=== PATIENT | female | born 1960 | race Caucasian/White ===

== ENCOUNTER 2023-02-06 09:18 | Outpatient (AMB) | payer MEDICARE, SELFPAY ==
--- NOTE | 2023-02-06 12:26 | AM.OFFWIN_ITS ---
Intake Vital Signs 02/06/23 12:31 Height 5 ft 6 in Weight 159 lb BMI 25.7 BP 150/80 H Blood Pressure Location Lt brachial Position Sitting Pulse 99 Pulse Source Pulse Oximeter Temp 98.4 F Temp Source Temporal Artery Scan Pulse Oximetry (%) 98 Oxygen Delivery Method Room Air Intake Visit Reasons: EP cough +COVID 2wks ago [id number] Intake Note: pt is here today for cough+ covid 4 weeks ago Patient Tobacco Use Status: Never used Tobacco Allergies No Known Allergies Allergy (Verified 02/06/23 12:57) Medication List - Last Reconciled 02/06/23 by Amador Haro MD No Known Home Meds Do you need a note to return to daycare/school/sports/work: No HPI EP cough +COVID 2wks ago [id number] HPI Details 63-year-old female presents to the [facility] for a sick visit. Patient is reporting symptoms of nonproductive cough, postnasal drip and shortness of breath for 5 weeks. One week after symptoms started, patient was diagnosed with COVID and she has recovered from it. However the cough symptoms persist. 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 [facility] Social History Patient Tobacco Use Status: Never used Tobacco Physical Exam Vital Signs: Last Vital Signs Temp 98.4 F 02/06/23 12:31 Pulse 99 02/06/23 12:31 BP 150/80 H 02/06/23 12:31 Pulse Ox 98 02/06/23 12:31 Oxygen Delivery Method Room Air 02/06/23 12:31 BMI result Body Mass Index 25.7 Const General: cooperative and healthy appearing Nutritional Appearance: well nourished Orientation/consciousness: patient oriented x3 Limitations: no limitations HEENT Head: Yes normal to inspection Eyes General: appearance normal, both eyes and all related structures Neck Neck: Yes normal visual inspection Chest Chest palpation & inspection: normal palpation of entire chest wall Resp Other: Scattered crackles. Effort & Inspection: normal respiratory effort Neuro General: patient oriented x3 Assessment & Plan Assessment & Plan (1) Cough: Code(s): R05.9 - Cough, unspecified Plan: Chest x-ray images were reviewed by me. No infiltrate seen. Cough symptoms represent inflammation in the lungs. Prednisone, antibiotic and cough suppressant prescribed. If symptoms do not improve to follow-up here. Orders: Orders XR chest 2V Today R05.9 - Cough, unspecified Coding Level of Care Code Est Pt Level 4 (52367) Diagnoses Cough R05.9
[2023-02-06 12:31] VITALS: BP 150/80; PULSE 99; TEMP 36.9; O2SAT 98; BMI 25.7
== END 2023-02-06 13:26 | disposition home or self-care (01) ==
PROVIDERS: PCP Internal Medicine; Visit Provider Internal Medicine
DX: R05.9 Cough, unspecified (principal)
CPT/HCPCS: 99214

== ENCOUNTER 2023-02-06 12:57 | Outpatient (REF) | payer MEDICARE, SELFPAY ==
--- NOTE | ~2023-02-06 | XR_ITS ---
EXAMINATION: XR CHEST CLINICAL INFORMATION: Cough COMPARISON: None available. TECHNIQUE: 2 views of the chest were obtained. FINDINGS: No significant abnormality is noted involving the heart, lungs, mediastinum, bony thorax or soft tissues. XR/XR chest 2V IMPRESSION: Unremarkable examination.
== END 2023-02-06 12:58 | disposition home or self-care (01) ==
LOC: HO.HMGCX 12:57
PROVIDERS: PCP Internal Medicine Endocrinology, Diabetes & Metabolism; Visit Provider Internal Medicine
DX: R05.9 Cough, unspecified (principal)
CPT/HCPCS: 71046

== ENCOUNTER 2024-05-31 09:16 | Outpatient (AMB) | payer MEDICARE, SELFPAY ==
[2024-05-31 09:49] VITALS: BP 124/80; PULSE 89; RESP 16; TEMP 36.8; O2SAT 97; BMI 25.5
--- NOTE | 2024-05-31 09:49 | MHC.OFFWIV ---
Intake Vital Signs 05/31/24 09:49 Height 5 ft 6 in Weight 158 lb BMI 25.5 BP 124/80 Blood Pressure Location Lt brachial Position Sitting Respiration 16 Pulse 89 Pulse Source Pulse Oximeter Temp 98.2 F Temp Source Oral Pulse Oximetry (%) 97 Oxygen Delivery Method Room Air Intake Visit Reasons: EP-Neck Pain Intake Note: Pt is here today c/o neck pain due to being on the computer last sunday for 8 straight hrs at home: No injury noted Patient Tobacco Use Status: Never used Tobacco Allergies No Known Allergies Allergy (Verified 05/31/24 09:50) HPI EP-Neck Pain HPI Details Severe neck pain and spasm with decreased range of motion. No a traumatic injury but was using a computer for 8-10 hours with workstation well below eye level. Worsening tightness and tension in her neck and yesterday severe pain. PFSH Social History Patient Tobacco Use Status: Never used Tobacco Review of Systems Const Denies chills, Denies fatigue, Denies fever(s), Denies headache(s) and Denies weakness ENT Denies dizziness and Denies headache(s) Card Denies dyspnea Resp Denies cough, Denies dyspnea, Denies wheezing and Denies other ( shortness of breath) Musc Details: Neck pain and decreased range of motion See HPI Denies numbness and Denies tingling Neuro Denies dizziness, Denies headache(s), Denies numbness, Denies tingling, Denies paresthesias and Denies weakness Psych Denies anxiety and Denies depression Endo Denies fatigue Aller/Immun Denies wheezing Physical Exam Vital Signs: Last Vital Signs Temp 98.2 F 05/31/24 09:49 Pulse 89 05/31/24 09:49 Resp 16 05/31/24 09:49 BP 124/80 05/31/24 09:49 Pulse Ox 97 05/31/24 09:49 Oxygen Delivery Method Room Air 05/31/24 09:49 BMI result Body Mass Index 25.5 Const General: no acute distress and well developed Nutritional Appearance: well nourished Orientation/consciousness: patient oriented x3 HEENT Head: Yes normocephalic and Yes atraumatic Eyes General: appearance normal, both eyes and all related structures Pupils: Equal, round and reactive pupils present EOM: EOMs intact bilaterally Neck Other: Tension tenderness and decreased range of motion at cervical paraspinous muscles Also tension in trapezius muscles bilaterally Can not turn head to the left or right more than a few degrees. Turns body to address and speak to examiner. Resp Effort & Inspection: normal respiratory effort Neuro General: patient oriented x3 and gait normal Cranial nerves: Yes Equal, round and reactive pupils present Psych Affect: normal affect Assessment & Plan Assessment & Plan (1) Acute torticollis: Code(s): M43.6 - Torticollis Plan: Severe spasm of neck and trapezius muscles With inability to turn head. Will give her a script for cyclobenzaprine Meloxicam Ice/heat Maintain current range of motion but hold off on stretching for a couple of days Gentle stretching exercises demonstrated which she can begin when her muscle begin to relax Medications: New cyclobenzaprine 10 mg PO TID 10 days PRN 30 tabs 0RF muscle spasm meloxicam 15 mg PO DAILY 30 days 30 tabs 2RF Coding Level of Care Code Est Pt Level 3 (20407) Diagnoses Acute torticollis M43.6
== END 2024-05-31 11:10 | disposition home or self-care (01) ==
LOC: HO.HMCWIC 09:16
PROVIDERS: PCP Internal Medicine Endocrinology, Diabetes & Metabolism; Visit Provider Family Medicine
DX: M43.6 Torticollis (principal)

== ENCOUNTER → 2024-05-31 09:16 | Outpatient (BNVA) | payer MEDICARE, SELFPAY | PROVIDERS: PCP Internal Medicine Endocrinology, Diabetes & Metabolism; Visit Provider Family Medicine | DX: M43.6 Torticollis (principal) | CPT/HCPCS: 99212 ==

== ENCOUNTER 2024-08-26 07:58 | Outpatient (REF) | payer MEDICARE, SELFPAY ==
--- NOTE | ~2024-08-26 | XR_ITS ---
EXAMINATION: XR ELBOW, RIGHT CLINICAL INFORMATION: M79.601 - Pain in right arm COMPARISON: None available. TECHNIQUE: AP, lateral, and oblique views of the right elbow. FINDINGS: Assessment for joint effusion is somewhat limited due to obliquity on the lateral projection. There appears to be a joint effusion present. No definite fracture, dislocation, or suspicious bone lesion. 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 The radial head appears grossly intact. The radiocapitellar joint appears normal. There is no abnormality of the epicondyles. There is no soft tissue abnormality. XR/XR elbow RT min 3V IMPRESSION: 1. Limited assessment for joint effusion. Possible joint effusion present. 2. No definite fracture or dislocation identified. 3. 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 Electronically signed by: Rayn Fitzgerald MD 08/26/2024 09:21 AM EDT
== END 2024-08-26 07:59 | disposition home or self-care (01) ==
LOC: HO.HMGCX 07:58
PROVIDERS: PCP Internal Medicine Endocrinology, Diabetes & Metabolism; Visit Provider Physician Assistant Medical
DX: M79.601 Pain in right arm (principal)
CPT/HCPCS: 73080; 99212

== ENCOUNTER 2024-08-26 07:58 | Outpatient (AMB) | payer MEDICARE, SELFPAY ==
--- OUTSIDE RECORDS SUMMARY | 2024-08-26 08:01 | XMS_ITS | Clinical Summary ---
Author Organization [facility] Address [address] [place] [address] Care Team Providers Care Kaiwhakahaere Name Role Phone Clarita Kinsey MD Primary Care Provid er Surgical History Surgery Date Site/Laterality Comments OTHER SURGICAL HISTORY PROCEDURE: HISTORY OTHER; COMMENT: HYSTERECTOMY OTHER SURGICAL HISTORY PROCEDURE: HISTORY OTHER; COMMENT: RECTOCOELE AND CYSTOCOELE REPAIR Medical History Medical History Date Comments Osteoporosis DX:Osteoporosis Anxiety DX:Anxiety IBS (irritable bowel syndrome) D X:IBS (irritable bowel syndrome) GERD (gastroesophageal reflux disease) DX:GERD (gastroesophageal reflux disease) Polyp of colon DX:Polyp of colo n Hearing loss DX:Hearing loss 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 DX:Degeneration of lumbar in tervertebral disc Social History Tobacco Use Types Packs/Day Years Used Date Smoking Tobacco: Never Smokeless Tobacco: Never Alcohol Use Standard Drinks/Week Comments Not Currently 0 (1 standard drink = 0.6 oz pur e alcohol) Comments Unknown Sex and Gender Information Value Date Recorded Sex Assigned at Not on file Legal Sex Female 1:35 PM EDT Gender Identity Not on file Sexual Orientation Not on file Obstetrics History Last Filed Vital Signs Vital Sign Reading Time Taken Comments Blood Pressure 148/88 08/01/2023 12:12 PM EDT Sitting R Arm Pulse 106 09/17/2023 11:34 AM EDT Temperature - - Respiratory Rate - - Oxygen Saturation - - Inhaled Oxygen Concentration - - Weight 73.3 kg (161 lb 11.2 oz) 09/17/2023 11:32 AM EDT Height 167.6 cm (5' 6 ) 09/17/2023 11:3 2 AM EDT Body Mass Index 26.1 09/17/2023 11:32 AM EDT Plan of Treatment Upcoming Encounters Date Type Department Care Team (Late st Contact Info) Description 10/10/2024 10:40 AM EDT Office Visit [facility] [address] [place] [id number] Jakob Camejo NP [address] [place] [address] [address] [place] [address] Health Maintenance Due Date Last Done Comments Breast Cancer Screening 1960 DTaP,Tdap,and Td Vaccines (1 - Tdap) 1977 Pneumococcal Vaccine: 50+ Ye ars (1 of 1 - PCV) 01/09/2008 Zoster Vaccines (1 of 2) 01/09/2008 Cholesterol Screening (Lipid Panel) 09/04/2023 Colorectal Cancer Screening: Colonoscopy 09/04/2023 Falls Risk Assessment 09/04/2023 Hepatitis C Screening 09/04/2023 Medicare Annual Wellness Visit 09/04/2023 Osteoporosis Screening (Bone Density Screening) 09/04/2023 Social Influencers of Health Screening 09/04/2023 COVID-19 Vaccine (1 - 2023-2 5 season) 2023 Depression Screening 02/06/2024 Hypertension/CHF/CAD Annual BMP Blood Test 08/06/2024 Influenza Vaccine (#1) 2024 RSV Immunization Adult Patie nts (1 - 1-dose 75+ series) 2033 HIB Vaccines Aged Out No longer eligi ble based on patient's age to complete this topic HPV Vaccines Aged Out No longer eligi ble based on patient's age to complete this topic Hepatitis A Vaccines Aged Out No long er eligible based on patient's age to complete this topic Hepatitis B Vaccines Aged Out No long er eligible based on patient's age to complete this topic IPV Vaccines Aged Out No longer eligi ble based on patient's age to complete this topic MMR Vaccines Aged Out No longer eligi ble based on patient's age to complete this topic Meningococcal ACWY Vaccine Aged Out N o longer eligible based on patient's age to complete this topic Meningococcal B Vaccine Aged Out No l onger eligible based on patient's age to complete this topic RSV Immunization Patients Un alexander 20 months Aged Out No longer eligible b ased on patient's age to complete this topic Varicella Vaccines Aged Out No longer eligible based on patient's age to complete this topic Insurance MEDICARE Care Teams Kaiwhakahaere Relationship Specialty Start Date End Date Clarita Kinsey MD [address] [place] [address] [address] [place] [phone] PCP - General Endocrinology 07/31/24
[2024-08-26 08:03] VITALS: BP 130/80; PULSE 83; TEMP 36.6; O2SAT 96; BMI 25.8
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
== END 2024-08-26 09:38 | disposition home or self-care (01) ==
PROVIDERS: PCP Internal Medicine Endocrinology, Diabetes & Metabolism; Visit Provider Physician Assistant Medical
DX: M79.601 Pain in right arm (principal)

== ENCOUNTER → 2024-08-26 08:56 | Outpatient (BNV) | payer MEDICARE, SELFPAY | PROVIDERS: PCP Internal Medicine Endocrinology, Diabetes & Metabolism; Visit Provider Radiology Diagnostic Radiology | DX: M19.021 Primary osteoarthritis, right elbow (principal) | CPT/HCPCS: 73080 ==